=== PATIENT | male | born 1960 | race Caucasian/White ===

== ENCOUNTER 2017-02-22 23:28 | Emergency (ER) | payer BC ==
[~2017-02-22] VITALS: Ht 177.8 cm; Wt 103.7 kg
[~2017-02-22 23:28] MED LIST: ESSENTIAL DAIL1 EACH PO; FLOMAX0.4 MG PO; PERCOCET 5/31 TABLET PO; ZOFRAN4 MG PO
[2017-02-22 23:30] VITALS: BP 168/91
[2017-02-23 00:24] LABS: HEMATOCRIT 42.8 % (38.0-50.0); MCH 32.7 PG (29.0-34.0); MCHC 34.8 G/DL (30.0-36.0); MCV 94.1 FL (86-99); MEAN PLAT.VOLUME 10.4 uM^3 (9.0-12.4); PLATELET COUNT 282 K/uL (156-360); RBC DIS.WIDTH-CV 12.7 % (11.8-14.6); RED BLOOD COUNT 4.55 M/uL (4.00-5.50); WHITE BLOOD COUNT 15.2 K/uL (4.1-10.2)
[2017-02-23 00:36] LABS: CHLORIDE 106 mEq/L (99-109); POTASSIUM 4.4 mEq/L (3.7-5.4); SODIUM 141 mEq/L (136-147)
[2017-02-23 00:38] LABS: GLUCOSE 122 mg/dL (70-99)
[2017-02-23 00:40] LABS: ANION GAP 11 MEQ/L (2-14)
[2017-02-23 00:42] LABS: GFR ESTIMATE (CALCULATED) > 59 mL/min/
[2017-02-23 00:43] LABS: UREA NITROGEN (BUN) 25 mg/dL (9-23)
== END 2017-02-23 01:00 | disposition left against medical advice (07) ==
LOC: EME 23:28
DX: R68.83 Chills (without fever) (principal); Z53.21 Procedure and treatment not carried out due to patient leaving prior to being seen by health care provider
CPT/HCPCS: 80048; 85027